=== PATIENT | female | born 1950 | race Caucasian/White ===

== ENCOUNTER 2019-04-01 11:43 | Emergency (ER) | payer MEDICARE, MEDICAID ==
[~2019-04-01] VITALS: Ht 152.4 cm; Wt 104.7 kg
[~2019-04-01 11:43] MED LIST: BACL10TA PO; CHLORPHENIRAMINE PO; FEXO180T94 PO; HYDROCHLOROTHIAZIDE PO; HYDROCODONE PO; LEVA15HF4 INH; LEVO75TA PO; MELO-102 PO; MOME17SP NS; MONT10TA21 PO; OMEP20CA4 PO; TRIM100T PO; VYTORIN PO
[2019-04-01 12:16] VITALS: BP 124/70
[2019-04-01] MEDS ORDERED: orphenadrine citrate 60mg/2ml inj. IM ONE (14:45)
[2019-04-01] MEDS ORDERED: ketorolac tromethamine 15mg/ml inj. IM ONE (14:45)
== END 2019-04-01 15:04 | disposition home or self-care (01) ==
LOC: ER 11:44
DX: M25.551 Pain in right hip (principal); M25.552 Pain in left hip; G89.29 Other chronic pain; J45.909 Unspecified asthma, uncomplicated; Z86.2 Personal history of diseases of the blood and blood-forming organs and certain disorders involving the immune mechanism; Z90.49 Acquired absence of other specified parts of digestive tract; Z88.2 Allergy status to sulfonamides; Z88.1 Allergy status to other antibiotic agents; Z79.899 Other long term (current) drug therapy
CPT/HCPCS: 96372; 99283; J1885; J2360

== ENCOUNTER 2020-07-21 19:43 | Emergency (ER) | payer BC, MEDICAID ==
[~2020-07-21] VITALS: Ht 152.4 cm; Wt 102.0 kg
[2020-07-21 20:28] LABS: BASOPHILS % (AUTO) 0.6 % (0-1); EOSINOPHILS # (AUTO) 0.1 X10'3 (0-0.9); HEMATOCRIT 40.4 % (35.0-45.0); HEMOGLOBIN 12.9 g/dl (12.0-16.0); MEAN CORPUSCULAR HEMOGLOBIN 28.6 PG (27.0-31.0); MEAN CORPUSCULAR VOLUME 89.3 FL (78-98); MEAN PLATELET VOLUME 8.2 FL (7.4-10.4); MONOCYTES # (AUTO) 0.5 X10'3 (0-0.9); MONOCYTES % (AUTO) 7.9 % (2-12); NEUTROPHILS # (AUTO) 4.7 X10'3 (1.8-7.7); NEUTROPHILS % (AUTO) 73.5 % (42-75); PLATELET COUNT 316 X10'3 (140-440); RED BLOOD COUNT 4.53 X10'6 (4.20-5.60); RED CELL DISTRIBUTION WIDTH 16.5 % (11.5-14.5); WHITE BLOOD COUNT 6.4 X10'3 (4.5-11.0)
[2020-07-21 20:39] LABS: ALANINE AMINOTRANSFERASE 28 U/L (12-78); ALBUMIN 3.6 G/DL (3.4-5.0); ALBUMIN/GLOBULIN RATIO 0.9 (1.1-1.5); ALKALINE PHOSPHATASE 122 IU/L (46-116); ANION GAP 7 (8-16); ASPARTATE AMINO TRANSFERASE 12 U/L (10-37); BILIRUBIN,TOTAL 0.1 MG/DL (0.1-1.0); BLOOD UREA NITROGEN 25 MG/DL (7-18); BUN/CREATININE RATIO 23.1 (6.6-38.0); CALCIUM 10.4 MG/DL (8.5-10.1); CHLORIDE 108 MMOL/L (99-107); CREATININE 1.08 MG/DL (0.40-0.90); GLUCOSE 97 MG/DL (70-104); LIPASE 114 U/L (73-393); POTASSIUM 3.9 MMOL/L (3.5-5.1); SODIUM 145 MMOL/L (135-145); TOTAL CARBON DIOXIDE 29.9 MMOL/L (24-32); TOTAL PROTEIN 7.4 G/DL (6.4-8.2); eGFR 50 ML/MIN
[2020-07-21 21:49] LABS: CLARITY,URINE CLEAR (Clear); COLOR,URINE YELLOW (Yellow); GLUCOSE, URINE NEGATIVE (Neg); KETONES,URINE NEGATIVE (Neg); LEUKOCYTE ESTERASE ,URINE NEGATIVE (Neg); NITRITES, URINE NEGATIVE (Neg); OCCULT BLOOD,URINE SMALL (Neg); PROTEIN,URINE NEGATIVE (Neg); UROBILINOGEN,URINE 0.2 E.U/dL (0.2-1.0)
[2020-07-21 22:09] LABS: UA COLLECTION TYPE CLN CATCH MIDSTREAM; WBC,URINE 0-4 /HPF (0-4)
[2020-07-21 22:10] LABS: BACTERIA,URINE NONE SEEN /HPF (Neg); RBC,URINE 0-2 /HPF (0-2); SQUAMOUS EPITHELIAL CELL,UR FEW /LPF (FEW)
[2020-07-21] MEDS ORDERED: normal saline 1000ML IV soln IVB ONE (23:10)
[2020-07-21] MEDS ORDERED: iohexol 300mg/ml 100ml inj. ONE (23:18)
[2020-07-21 23:27] LABS: PARTIAL THROMBOPLASTIN TIME 27 SECONDS (22-32)
[2020-07-21 23:52] VITALS: BP 158/57
--- NOTE | 2020-07-22 00:49 | NUR ---
assisted Dr Sullivan with BS vaginal exam with speculum and manual exam. Pt jhoan. Procedure well.
[2020-07-22] MEDS ORDERED: ketorolac tromethamine 15mg/ml inj. IV ONE (00:55)
== END 2020-07-22 01:12 | disposition home or self-care (01) ==
LOC: ER 19:44
DX: N93.9 Abnormal uterine and vaginal bleeding, unspecified (principal); Z88.1 Allergy status to other antibiotic agents; Z88.2 Allergy status to sulfonamides; Z88.8 Allergy status to other drugs, medicaments and biological substances; Z79.899 Other long term (current) drug therapy
CPT/HCPCS: 36415; 74177; 80053; 81001; 83690; 85025; 85610; 85730; 96361; 96374; 99285; J1885; J7030; Q9967